=== PATIENT | female | born 1980 | race Caucasian/White ===

== ENCOUNTER → 2020-02-03 | Outpatient (CLI) | payer OTHER ==
[2020-02-07 15:10] LABS: HPV 16 Positive (Negative); HPV 18 Negative (Negative); HPV OTHER HR TYPES Positive (Negative)
== END | disposition home or self-care (01) ==
LOC: LAB SHORT 18:45 → LAB 18:45
PROVIDERS: Family Medicine
DX: Z12.4 Encounter for screening for malignant neoplasm of cervix (principal)
CPT/HCPCS: 87624; G0123

== ENCOUNTER → 2020-06-07 | Outpatient (CLI) | payer OTHER ==
[2020-06-08 16:10] LABS: HPV 16 Positive (Negative); HPV 18 Negative (Negative); HPV OTHER HR TYPES Positive (Negative)
== END | disposition home or self-care (01) ==
LOC: LAB SHORT 16:04 → PLD 16:04
PROVIDERS: Obstetrics & Gynecology
DX: N87.9 Dysplasia of cervix uteri, unspecified (principal)
CPT/HCPCS: 87624; 87625; 88142

== ENCOUNTER → 2020-12-27 | Outpatient (CLI) | payer OTHER | END | disposition home or self-care (01) | LOC: LAB SHORT 19:38 → LAB 19:38 | DX: J02.9 Acute pharyngitis, unspecified (principal) | CPT/HCPCS: 87081; 87147 ==

== ENCOUNTER → 2021-12-05 | Outpatient (CLI) | payer OTHER | END | disposition home or self-care (01) | LOC: LAB SHORT 16:12 → LAB 16:12 | DX: J02.9 Acute pharyngitis, unspecified (principal) | CPT/HCPCS: 87081 ==

== ENCOUNTER → 2023-05-11 | Outpatient (CLI) | payer OTHER ==
[2023-05-11 16:12] LABS: Source, Urine Clean Catch
[2023-05-11 17:23] LABS: Appearance, Urine Turbid (Clear); Bilirubin, Urine Neg (Neg); Blood, Urine 2+ (Neg); Color, Urine Yellow (P-Yellow); Glucose Qualitative, Urine Neg (Neg); Ketones, Urine 1+ (Neg); Leukocyte Esterase, Urine 1+ (Neg); Nitrite, Urine Neg (Neg); Protein, Urine 3+ (Neg); Urobilinogen, Urine NORM (Normal)
[2023-05-11 18:07] LABS: Amorphous Heavy (0-Heavy); Bacteria Many /hpf; Granular Casts 0-2 /lpf (0); Hyaline Casts 0-2 /lpf (0-2); Squamous Epithelial Cells Mod /hpf (Few)
== END | disposition home or self-care (01) ==
LOC: LAB 16:09 → LAB SHORT 16:09
PROVIDERS: Obstetrics & Gynecology
DX: R32 Unspecified urinary incontinence (principal)
CPT/HCPCS: 81001; 87086

== ENCOUNTER → 2023-06-08 | Outpatient (CLI) | payer OTHER ==
[2023-06-08 18:31] LABS: Source, Urine Clean Catch
[2023-06-08 19:43] LABS: Appearance, Urine Turbid (Clear); Bilirubin, Urine Neg (Neg); Blood, Urine 3+ (Neg); Color, Urine Yellow (P-Yellow); Glucose Qualitative, Urine Neg (Neg); Ketones, Urine 1+ (Neg); Leukocyte Esterase, Urine 1+ (Neg); Nitrite, Urine Neg (Neg); Protein, Urine 3+ (Neg); Specific Gravity, Urine 1.025 (1.003-1.022); Urobilinogen, Urine NORM (Normal)
[2023-06-08 19:58] LABS: Amorphous Heavy (0-Heavy); Bacteria Mod /hpf; Squamous Epithelial Cells Few /hpf (Few)
== END ==
LOC: LAB SHORT 15:30 → LAB 15:30
PROVIDERS: Obstetrics & Gynecology
DX: O09.523 Supervision of elderly multigravida, third trimester (principal); R82.90 Unspecified abnormal findings in urine; Z3A.00 Weeks of gestation of pregnancy not specified
CPT/HCPCS: 81001; 87081; 87086; 87150

== ENCOUNTER → 2023-06-09 | Outpatient (CLI) | payer OTHER | LOC: LAB 15:27 → LAB SHORT 15:27 | DX: D18.01 Hemangioma of skin and subcutaneous tissue (principal) | CPT/HCPCS: 88305 ==

== ENCOUNTER 2024-02-29 10:49 | Day surgery (SDC) | payer OTHER ==
[~2024-02-29] VITALS: Ht 160 cm; Wt 105.0 kg
[~2024-02-29 10:49] MED LIST: FAMO20 PO; FERSU300 PO; Lactated Ringer's 1,000 ML IV ONE; PRENATAL TABLE1 EAC2 PO
[2024-02-29] MEDS ORDERED: GUAI600T33 PO (11:33)
[2024-02-29] MEDS ORDERED: TAMS.4ER PO (11:33)
[2024-02-29] MEDS ORDERED: Lactated Ringer's 1,000 ML IV ONE (11:48)
[2024-02-29] MEDS ORDERED: propofoL 20 ML IV ONE (12:22)
[2024-02-29] MEDS ORDERED: FentaNYL Citrate 50 MCG/ML 2 ML Injection ONE (12:23)
[2024-02-29] MEDS ORDERED: Sugammadex Sodium 200 MG/2ML SDV (100 MG/ML) ONE (12:57)
[2024-02-29] MEDS ORDERED: Ondansetron HCl 2 MG / ML 2ML Vial ONE (13:10)
[2024-02-29] MEDS ORDERED: EPINEPhrine HCl 1 MG/ML 1ML Amp XX ONE (13:16)
[2024-02-29] MEDS ORDERED: Droperidol 5 mg/2 ml Vial ONE (13:16)
[2024-02-29] MEDS ORDERED: Lidocaine 2%-Epineph 1:200000 20 ML SDV XX ONE (13:16)
[2024-02-29] MEDS ORDERED: HYDROmorphone HCl/Pf 1MG SYR ONE (13:18)
[2024-02-29 14:37] VITALS: BP 127/60
--- NOTE | 2024-02-29 15:15 | NUR ---
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 THE LEFT NOSTRIL NEEDED CLEANED; CLOTTING BLOOD. NEW GUAZE APPLIED AND PT SENT HOME WITH EXTRA. GIVEN INSTRUCTIONS TO INSPECTOR SEMICONDUCTOR WAFER AFRIN NASAL SPRAY RIGHT AWAY IN CASE SHE NEEDED TO STOP OOZING. PT DENIED HAVING ANY PAIN OR NAUSEA PRIOR TO DC.
== END 2024-02-29 15:03 | disposition home or self-care (01) ==
LOC: ORSCSDS 10:49
PROVIDERS: Otolaryngology
PROC: 09SM0ZZ Reposition Nasal Septum, Open Approach (ICD-10-PCS; principal; 2024-02-29 12:15)
DX: J34.2 Deviated nasal septum (principal); J34.3 Hypertrophy of nasal turbinates; K21.9 Gastro-esophageal reflux disease without esophagitis; Z79.899 Other long term (current) drug therapy; E66.01 Morbid (severe) obesity due to excess calories; Z68.41 Body mass index [BMI] 40.0-44.9, adult
CPT/HCPCS: J0171; J1171; J1790; J2405; J2704; J3010; J7120

== ENCOUNTER 2024-06-23 22:44 | Emergency (ER) | payer OTHER ==
[~2024-06-23] VITALS: Ht 160 cm; Wt 99.8 kg
[~2024-06-23 22:44] MED LIST changes: +GUAI600T33 PO; -Lactated Ringer's 1,000 ML IV ONE; +TAMS.4ER PO
[2024-06-23 22:55] VITALS: BP 159/108
== END 2024-06-23 23:30 | disposition home or self-care (01) ==
LOC: ER 22:44
DX: S00.11XA Contusion of right eyelid and periocular area, initial encounter (principal); K21.9 Gastro-esophageal reflux disease without esophagitis; W22.8XXA Striking against or struck by other objects, initial encounter; Z79.899 Other long term (current) drug therapy; Z88.8 Allergy status to other drugs, medicaments and biological substances
CPT/HCPCS: 99282

== ENCOUNTER → 2024-08-24 | Outpatient (CLI) | payer OTHER ==
[2024-09-02 23:30] LABS: HPV HIGH RISK BY TMA Not Detected; HPV SOURCE Cervical
== END | disposition home or self-care (01) ==
LOC: LAB SHORT 15:44 → LAB 15:44
PROVIDERS: Obstetrics & Gynecology
DX: Z01.419 Encounter for gynecological examination (general) (routine) without abnormal findings (principal)
CPT/HCPCS: 87624; G0123